=== PATIENT | female | born 1970 | race Caucasian/White ===

== ENCOUNTER 2018-07-29 20:10 | Emergency (ER) | payer OTHER ==
[2018-07-29] MEDS ORDERED: Bacitracin Oint 1 GM U/D Packet TOP ONE (20:37)
--- NOTE | 2018-07-29 21:16 | EDM.PDOC ---
ED HPI GENERAL MEDICAL PROBLEM - General Chief Complaint: General Stated Complaint: TIMBER PUNCTURED BACK SIDE Time Seen by Provider: 07/29/18 20:45 Source of Information: Reports: Patient, Family History Limitations: Reports: No Limitations - History of Present Illness INITIAL COMMENTS - FREE TEXT/NARRATIVE: 47-year-old female who fell 6 hours ago onto her left buttock into a flower bed , suffering a puncture to the left buttock area. This was done with a wooden plant support. It did break. As the day has gone on she's had increased pain in the left buttock. No other injury other than a slight scratch on the right posterior calf of the lower extremity. 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: Reports: Dysfunctional Uterine Bleeding, Endometriosis, Musculoskeletal History: Reports: Fracture Hematologic History: Reports: Other (See Below) Other Hematologic History: factor V - Past Surgical History HEENT Surgical History: Reports: Tonsillectomy GI Surgical History: Reports: Appendectomy Female Surgical History: Reports: Hysterectomy Neurological Surgical History: Reports: Spinal Fusion Social & Family History - Tobacco Use Smoking Status *Q: Never Smoker - Caffeine Use Caffeine Use: Reports: Coffee - Recreational Drug Use Recreational Drug Use: No ED ROS GENERAL - Review of Systems Review Of Systems: See Below Constitutional: Denies: Fever Respiratory: Denies: Shortness of Breath Cardiovascular: Denies: Chest Pain GI/Abdominal: Denies: Abdominal Pain Skin: Reports: Other (Some bruising has developed around the wound on the right buttock) Neurological: Denies: Paresthesia ED EXAM, GENERAL - Physical Exam Exam: See Below Exam Limited By: No Limitations General Appearance: Alert, No Apparent Distress, Other Respiratory/Chest: No Respiratory Distress, Lungs Clear Extremities: Other (Exam is otherwise limited to the buttocks area and posterior legs. The patient has a 3 mm puncture wound on the center of the left buttock with some surrounding bruising and tenderness area and there is no active bleeding.) Neurological: Alert, Oriented Skin Exam: Other (Very superficial abrasion on the posterior aspect of the left calf area of the lower leg.) Course - Vital Signs Last Recorded V/S: Last Vital Signs Temp 97.4 F 07/29/18 20:40 Pulse 88 07/29/18 20:40 Resp 18 07/29/18 20:40 BP 116/81 07/29/18 20:40 Pulse Ox 100 07/29/18 20:40 - Orders/Labs/Meds Meds: Medications Discontinued Medications Generic Name Dose Route Start Last Admin Trade Name Naima PRN Reason Stop Dose Admin Bacitracin 1 dose 07/29/18 20:37 07/29/18 20:48 Bacitracin Oint 1 Gm TOP 07/29/18 20:38 1 dose ONETIME ONE Administration Lidocaine HCl 5 ml 07/29/18 20:37 07/29/18 20:48 Xylocaine-Mpf 1% INJECT 07/29/18 20:38 5 ml ONETIME ONE Administration - Re-Assessments/Exams Free Text/Narrative Re-Assessment/Exam: 07/29/18 21:14 The buttock wound was infiltrated with 1% lidocaine, explored with a curved needle hickey and pressure was applied to the wound releasing a fairly significant amount of blood and clotting. The wound was then flushed with saline for 40 mL. An ultrasound probe was placed over the area had no foreign body was seen. The rest of the fluid and blood was expelled from the wound, and the patient will be placed on cephalexin 500 mg 3 times a day for a week, and given 12 hydrocodone for extra pain control. She can take anti-inflammatories initially, add the stronger pain medication when needed and increase activity as tolerated. Recheck at any time if she is concerned of infection or not healing satisfactorily. Departure - Departure Time of Disposition: 22:12 Disposition: Home, Self-Care 01 Clinical Impression: Puncture wound Traumatic hematoma of buttock Qualifiers: Encounter type: initial encounter Qualified Code(s): S30.0XXA - Contusion of lower back and pelvis, initial encounter - Discharge Information Instructions: Hematoma, [id number] Referrals: PCP,None [Primary Care Provider] - Forms: ED Department Discharge Care Plan Goals: Keep wound covered and clean while healing. Increase activity as tolerated, use anti-inflammatories for pain control and add stronger pain medication as directed if needed. Recheck if concerns of infection or not healing satisfactorily.
== END 2018-07-29 22:12 | disposition home or self-care (01) ==
LOC: JP.ED 20:10
DX: S31.823A Puncture wound without foreign body of left buttock, initial encounter (principal); S80.812A Abrasion, left lower leg, initial encounter; W45.8XXA Other foreign body or object entering through skin, initial encounter
CPT/HCPCS: 99283; J2001